=== PATIENT | male | born 1950 | race Caucasian/White ===

== ENCOUNTER 2018-10-09 12:22 | Outpatient (CLI) | payer MEDICARE ==
--- NOTE | 2018-10-09 13:47 | CT ---
CT CHEST WITHOUT CONTRAST PULMONARY LUNG SCAN: HISTORY: Chest pain. Smoker. Personal history of nicotine dependence. COMPARISON: None. FINDINGS: Lung screen specific (lung-RADS): Negative. No suspicious pulmonary nodule. Potentially significant incidentals (lung-RADS category S): Negative. Other incidentals: There is some mild bronchiectasis in both lower lobes. No effusion. No pneumothorax. Moderate coronary artery calcifications. No mediastinal adenopathy. No axillary adenopathy or inter nal mammary adenopathy. Thoracic spine is unremarkable. The sternum and manubrium are intact. The upper abdomen is unremarkable. IMPRESSION: Lung-RADS category 1-Negative. RECOMMENDATIONS: Continued screening chest CT, low dose, in 12 months. POS: [facility]
== END 2018-10-09 12:23 | disposition home or self-care (01) ==
LOC: CT 12:22
DX: Z87.891 Personal history of nicotine dependence (principal)
CPT/HCPCS: G0297